=== PATIENT | female | born 1930 | race American Indian/Alaskan Native ===

== ENCOUNTER 2018-04-08 07:28 | Emergency (ER) | payer MEDICARE ==
--- NOTE | 2018-04-08 10:01 | Emergency Department Report ---
ED CPR HPI - General Chief Complaint: Cardiac Arrest/CPR Stated Complaint: CARDIAC ARREST Time Seen by Provider: 04/08/18 07:39 Source: EMS (verbal report received from EMS.ems notes not available at time of chart dictation), RN notes reviewed Mode of arrival: Stretcher Limitations: Other - History of Present Illness Initial Comments: This is an 87-year-old female who is not known to this provider previously, who is brought to the hospital by EMS as out of hospital cardiac arrest. Last known well time is not known. Presenting rhythm is pulseless electrical activity/asystole. EMS reports providing chest compressions as per standard ACLS protocol. Upon arrival to the ER, patient has been receiving CPR for at least 20 minutes. Her pupils are fixed and do not react to light. Her rhythm is not shockable. No pulses are noted on repeat physical examinations. Resuscitation efforts are terminated secondary to medical futility. The family was subsequently informed. MD Complaint: found unresponsive -: unknown AED Applied by Bystander/Gas Line Installer Supervisor: No Shock Advised: No Initial Findings in the Field: no pulse, PEA ROSC in the Field: No Associated Injuries: No Treatments Prior to Arrival: intubation, chest compressions - Related Data Home Medications Medication Instructions Recorded Confirmed Last Taken Amlodipine Besylate [Norvasc] 2.5 mg PO DAILY 07/21/14 07/21/14 Unknown Cholecalciferol (Vitamin D3) 1,000 unit PO QDAY 07/21/14 07/27/14 Unknown [Vitamin D] Dronedarone HCl [Multaq] 400 mg PO DAILY 07/21/14 07/27/14 Unknown Duloxetine HCl [Cymbalta] 20 mg PO QDAY 07/21/14 07/21/14 Unknown Folic Acid [Folvite] 1 mg PO QDAY 07/21/14 07/21/14 Unknown Levothyroxine [Synthroid] 25 mcg PO QAM 07/21/14 07/21/14 Unknown Lisinopril [Zestril TAB] 40 mg PO QDAY 07/21/14 07/21/14 Unknown Trazodone HCl [traZODone] 50 mg PO DAILY 07/21/14 07/21/14 Unknown Previous Rx's Medication Instructions Recorded Last Taken Type Aspirin [Aspirin TAB] 325 mg PO QDAY #30 tablet 08/04/14 Unknown Rx Famotidine [Pepcid] 10 mg PO BID #30 tablet 08/04/14 Unknown Rx HYDROcodone/APAP 5-325 [[place] 1 each PO Q6H PRN #30 tablet 08/04/14 Unknown Rx 5-325 mg TAB] Megestrol [Megace] 400 mg PO QDAY #30 oral.liqd 08/04/14 Unknown Rx amLODIPine [Norvasc] 10 mg PO DAILY #30 tablet 08/04/14 Unknown Rx Allergies Allergy/AdvReac Type Severity Reaction Status Date / Time alprazolam [From Xanax] Allergy Unknown Verified 07/21/14 10:47 hydroxyzine HCl [From Atarax] Allergy Unknown Verified 07/21/14 10:47 Sulfa (Sulfonamide Allergy Unknown Verified 07/21/14 10:47 Antibiotics) ED Review of Systems ROS: Stated complaint: CARDIAC ARREST Other details as noted in HPI Comment: Unobtainable due to pts medical conditions ED Past Medical Hx - Past Medical History Hx Hypertension: Yes Hx Diabetes: Yes Hx Renal Disease: Yes (JASMIN - creatinine 1.9 on admission, resolved) Hx Arthritis: Yes Hx Psychiatric Treatment: Yes (Dementia) Hx Asthma: No Hx Dementia: Yes - Social History Smoking Status: Never Smoker - Medications Home Medications: Home Medications Medication Instructions Recorded Confirmed Last Taken Type Amlodipine Besylate [Norvasc] 2.5 mg PO DAILY 07/21/14 07/21/14 Unknown History Cholecalciferol (Vitamin D3) 1,000 unit PO QDAY 07/21/14 07/27/14 Unknown History [Vitamin D] Dronedarone HCl [Multaq] 400 mg PO DAILY 07/21/14 07/27/14 Unknown History Duloxetine HCl [Cymbalta] 20 mg PO QDAY 07/21/14 07/21/14 Unknown History Folic Acid [Folvite] 1 mg PO QDAY 07/21/14 07/21/14 Unknown History Levothyroxine [Synthroid] 25 mcg PO QAM 07/21/14 07/21/14 Unknown History Lisinopril [Zestril TAB] 40 mg PO QDAY 07/21/14 07/21/14 Unknown History Trazodone HCl [traZODone] 50 mg PO DAILY 07/21/14 07/21/14 Unknown History Aspirin [Aspirin TAB] 325 mg PO QDAY #30 tablet 08/04/14 Unknown Rx Famotidine [Pepcid] 10 mg PO BID #30 tablet 08/04/14 Unknown Rx HYDROcodone/APAP 5-325 [[place] 1 each PO Q6H PRN #30 tablet 08/04/14 Unknown Rx 5-325 mg TAB] Megestrol [Megace] 400 mg PO QDAY #30 oral.liqd 08/04/14 Unknown Rx amLODIPine [Norvasc] 10 mg PO DAILY #30 tablet 08/04/14 Unknown Rx ED Physical Exam - General Limitations: Other (nonverbal, GCS of 3) General appearance: obtunded - Head Head exam: Present: atraumatic, normocephalic - Eye Eye exam: Present: other (pupils are fixed and do not react to light) - ENT ENT exam: Present: normal external ear exam, other (endotracheal tube is noted in the oropharynx) - Neck Neck exam: Present: normal inspection - Respiratory Respiratory exam: Present: other (no breath sounds unless bag valve mask ventilation is applied) - Cardiovascular Cardiovascular Exam: Present: other (the patient is pulseless) - GI/Abdominal GI/Abdominal exam: Present: soft - Extremities Exam Extremities exam: Present: normal inspection, other (IO is noted in the left lower extremity) - Back Exam Back exam: Present: full ROM - Neurological Exam Neurological exam: Present: altered, other (GCS of 3, intubated) - Psychiatric Psychiatric exam: Present: other (nonverbal) - Skin Skin exam: Present: dry Critical care attestation.: If time is entered above; I have spent that time in minutes in the direct care of this critically ill patient, excluding procedure time. ED Disposition Clinical Impression: Cardiac arrest Disposition: [id number] Is pt being admited?: No Does the pt Need Aspirin: No Condition: Good Referrals: DOMINIQUE CASTORENA MD [Primary Care Provider] - 3-5 Days
[2018-04-08] MEDS ORDERED: ADRENALIN ONE (14:48)
== END 2018-04-08 12:00 ==
LOC: ED 07:28
DX: I46.9 Cardiac arrest, cause unspecified (principal); I10 Essential (primary) hypertension; M19.90 Unspecified osteoarthritis, unspecified site; F03.90 Unspecified dementia, unspecified severity, without behavioral disturbance, psychotic disturbance, mood disturbance, and anxiety; Z79.82 Long term (current) use of aspirin; Z88.2 Allergy status to sulfonamides; Z88.8 Allergy status to other drugs, medicaments and biological substances
CPT/HCPCS: 99284; J0171